=== PATIENT | male | born 1990 | race Caucasian/White ===

== ENCOUNTER → 2023-07-23 17:05 | Outpatient (BNVA) | payer MEDICAID, SELFPAY | PROVIDERS: Visit Provider Emergency Medicine | DX: J02.9 Acute pharyngitis, unspecified (principal) | CPT/HCPCS: 87071; 87880 ==

== ENCOUNTER 2024-03-12 07:12 | Emergency (ER) | payer MEDICAID, SELFPAY ==
[2024-03-12 07:18] VITALS: BP 153/80; PULSE 97; RESP 26; TEMP 38.1; O2SAT 100; BMI 24.3
--- NOTE | 2024-03-12 07:19 | ED_ITS ---
HPI - Abdominal Pain 2 General: Chief Complaint: Nausea/Vomiting/Diarrhea Stated Complaint: nausea, diarrhea, dizziness, abd pain Time Seen by Provider: 03/12/24 07:13 History of Present Illness: 34-year-old male presents emergency room complaining abdominal pain with nausea and diarrhea. Initially began about 3 days ago. He is taken some Tylenol and ibuprofen occasionally for it he has also had it and a prescription for ondansetron from a family member and has not really helped much as far as his nausea goes. He denies any dysuria urgency or frequency no hematochezia melena hematemesis or coffee-ground emesis. No previous abdominal surgeries no prescription medications. Patient has children in the home who have already had similar symptoms prior to his initiation of symptoms there is have already resolved MD elicited complaint: abdominal pain Onset (ago): day(s) (3) Pain Consistency: constant Location: Periumbilical Associated Symptoms: Reports change in bowel habits, GI cramping, diarrhea and poor appetite; Denies anorexia, belching, bloating, change in stool character, chills, coffee ground emesis, constipation, dyspepsia, dysuria, excessive flatus, fever(s), heartburn, hematochezia, hematuria, hematemesis, fecal incontinence, loose stools, melena, nausea, syncope and vomiting Review of Systems 2 Const: Denies: fever(s) or chills Card: Denies: chest pain or syncope Resp: Denies: dyspnea GI: Reports: diarrhea, GI cramping and change in bowel habits; Denies: abdominal pain, nausea, vomiting, hematemesis, coffee ground emesis, heartburn, constipation, bloating, belching, excessive flatus, fecal incontinence, change in stool character, hematochezia or melena : Denies: dysuria, urinary frequency, urinary urgency or hematuria Musc: Denies: neck pain or back pain Skin/Breast: Denies: rash Physical Exam 2 Const: COMMON NORMALS: no acute distress GENERAL APPEARANCE: cooperative and comfortable ORIENTATION/CONSCIOUSNESS: Yes awake, Yes oriented to person, Yes oriented to place and Yes oriented to time HENMT: COMMON NORMALS: normocephalic, atraumatic and hearing grossly normal bilaterally HEAD & SCALP: normocephalic and atraumatic Resp: COMMON NORMALS: normal respiratory effort, No retractions, No use of accessory muscles and clear to auscultation bilaterally AUSCULTATION: clear to auscultation bilaterally Cardio: COMMON NORMALS: regular rate, regular rhythm and No murmurs present (Cardio) RATE: regular rate RHYTHM: regular rhythm GI: COMMON NORMALS: No hepatosplenomegaly present AUSCULTATION: Yes normoactive bowel sounds PALPATION: Yes Tenderness to palpation present (GI) (Generalized), No Guarding due to palpation present (GI) and Yes No hepatosplenomegaly present Extremity: COMMON NORMALS: normal to inspection, capillary refill normal, no clubbing, cyanosis or edema, no calf tenderness and no pedal edema Neuro: SENSORIUM/ORIENTATION: Yes oriented to person, Yes oriented to place and Yes oriented to time Skin: COMMON NORMALS: no rashes or lesions noted GENERAL SKIN EXAM: no rashes or lesions noted Course 2 Vital Signs: Vital signs: Vital Signs Temperature 100.5 F H 03/12/24 07:18 Pulse Rate 98 03/12/24 10:11 Respiratory Rate 16 03/12/24 09:37 Blood Pressure 138/72 03/12/24 10:11 Pulse Oximetry 100 03/12/24 10:11 Oxygen Delivery Me thod Room Air 03/12/24 09:37 MDM - Abdominal Pain Medical Decision Making UA shows ketones that show some white blood cells but no leukocyte esterase and no nitrites. Patient has not had any urinary tract symptoms. I believe this may be due to his volume contraction. Given a single dose of Rocephin IV here we will discharge him home hold off on any oral antibiotics. He has not had a hematochezia. Concerned that initiating oral antibiotics will actually amplify his symptoms suspect this is viral he had some mesenteric lymphadenitis appearance on the CT. His other household contact has already had resolution of symptoms. Discharge patient home on promethazine as needed liquid diet if has any change or worsening of symptoms return. On repeat exam no acute abdomen does have a low-grade fever I think this is part of his viral complex with his colitis. Patient reports feeling much better after the IV fluids Lab Data 03/12/24 07:21 03/12/24 07:21 Labs/Radiology: Radiology Impressions Abdomen/Pelvis CT 03/12/24 07:48 IMPRESSION: 1. Enlarged lymph nodes in the RIGHT lower quadrant with prominent LEFT nodes along the central mesentery can be seen with mesenteric adenitis. 2. Appendix is not visualized but no evidence of acute appendicitis. 3. Hepatic congestion with periportal edema may be due to IV fluids. Recommend correlation with liver function tests. 4. No other acute findings. Laboratory Results WBC 8.87 10^3/uL (3.29-11.43) 03/12/24 07:21 RBC 5.45 10^6/uL (3.85-5.65) 03/12/24 07:21 Hgb 16.20 g/dL (11.27-16.99) 03/12/24 07:21 Hct 46.7 % (37-53) 03/12/24 07:21 MCV 85.7 fl (82-101) 03/12/24 07:21 MCH 29.7 pg (27-33) 03/12/24 07:21 MCHC 34.7 g/dL (30-55) 03/12/24 07:21 RDW 12.7 % (12.1-15.1) 03/12/24 07:21 Plt Count 216 10^3/cmm (157-399) 03/12/24 07:21 MPV 10.1 fL (7.4-10.4) 03/12/24 07:21 Neut % (Auto) 89.2 % 03/12/24 07:21 Lymph % (Auto) 3.4 % 03/12/24 07:21 [place] % (Auto) 6.9 % 03/12/24 07:21 Eos % (Auto) 0.2 % 03/12/24 07:21 Baso % (Auto) 0.1 % 03/12/24 07:21 Neut # (Auto) 7.91 10^3/uL (1.8-7.7) H 03/12/24 07:21 Lymph # (Auto) 0.3 10^3/uL (0.8-4.8) L 03/12/24 07:21 [place] # (Auto) 0.6 10^3/uL (0.2-0.9) 03/12/24 07:21 Eos # (Auto) 0.0 10^3/uL (0.0-0.8) 03/12/24 07:21 Baso # (Auto) 0.0 10^3/uL (0.0-0.1) 03/12/24 07:21 Nucleated RBC % (auto) 0 % 03/12/24 07:21 Nucleated RBCs # 0.0 /100WBC 03/12/24 07:21 Sodium 137 mmol/L (136-145) 03/12/24 07:21 Potassium 4.2 mmol/L (3.5-5.1) 03/12/24 07:21 Chloride 99 mmol/L (98-107) 03/12/24 07:21 Carbon Dioxide 23 mmol/L (22-29) 03/12/24 07:21 Anion Gap 19.2 (5-19) H 03/12/24 07:21 BUN 15 mg/dL (6-20) 03/12/24 07:21 Creatinine 1.3 mg/dL (0.7-1.2) H 03/12/24 07:21 GFR Calculation 62.8 mL/min (90-130) L 03/12/24 07:21 Glucose 118 mg/dL (65-115) H 03/12/24 07:21 Calculated Osmolality 286 mOsm/kg (285-295) 03/12/24 07:21 Lactic Acid 0.9 mmol/L (0.5-2.2) 03/12/24 08:13 Calcium 9.3 mg/dL (8.5-10.5) 03/12/24 07:21 Magnesium 1.7 mg/dL (1.7-2.3) 03/12/24 07:21 Total Bilirubin 0.7 mg/dL (0.15-1.2) 03/12/24 07:21 AST 32 U/L (0-40) 03/12/24 07:21 ALT 23 U/L (0-41) 03/12/24 07:21 Alkaline Phosphatase 88 U/L (40-130) 03/12/24 07:21 Creatine Kinase 240 U/L (39-308) 03/12/24 07:21 Total Protein 8.0 g/dL (6.6-8.7) 03/12/24 07:21 Albumin 4.4 g/dL (3.5-5.2) 03/12/24 07:21 Globulin 3.6 g/dL (1.3-4.6) 03/12/24 07:21 Lipase 29 U/L (13-60) 03/12/24 07:21 Urine Color Dark yellow (Yellow) A 03/12/24 07:40 Urine Appearance Clear (CLEAR) 03/12/24 07:40 Urine pH 5 (5-7) 03/12/24 07:40 Ur Specific [place] 1.015 (1.005-1.030) 03/12/24 07:40 Urine Protein 1+ (Negative) H 03/12/24 07:40 Urine Glucose (UA) Norm (Normal) 03/12/24 07:40 Urine Ketones 3+ (Negative) H 03/12/24 07:40 Urine Blood Neg (Negative) 03/12/24 07:40 Urine Nitrate Negative (Negative) 03/12/24 07:40 Urine Bilirubin 1+ (Negative) H 03/12/24 07:40 Urine Urobilinogen 1 mg/dL (Negative) H 03/12/24 07:40 Ur Leukocyte Esterase Trace (Negative) H 03/12/24 07:40 Urine RBC None /hpf (0-2) 03/12/24 07:40 Urine WBC 5-10 /hpf (0-5) H 03/12/24 07:40 Ur Squamous Epith Cells None /hpf (0-5) 03/12/24 07:40 Amorphous Sediment Not Reportable 03/12/24 07:40 Urine Bacteria Trace /hpf (NONE) 03/12/24 07:40 Adenovirus (PCR) Not detected (NOT DETECT) 03/12/24 07:42 C. pneumoniae DNA (PCR) Not detected (NOT DETECT) 03/12/24 07:42 Coronavirus 229E (PCR) Not detected (NOT DETECT) 03/12/24 07:42 Human Metapneumovir PCR Not detected (NOT DETECT) 03/12/24 07:42 Influenza A (H1) PCR Not detected (NOT DETECT) 03/12/24 07:42 Influ A (H1/09) PCR Not detected (NOT DETECT) 03/12/24 07:42 Influenza A (H3) PCR Not detected (NOT DETECT) 03/12/24 07:42 Influenza Type A (PCR) Not detected (NOT DETECT) 03/12/24 07:42 Influenza Type B (PCR) Not detected (NOT DETECT) 03/12/24 07:42 M. pneumoniae (PCR) Not detected (NOT DETECT) 03/12/24 07:42 Parainfluenza 1 (PCR) Not detected (NOT DETECT) 03/12/24 07:42 Parainfluenza 2 (PCR) Not detected (NOT DETECT) 03/12/24 07:42 Parainfluenza 3 (PCR) Not detected (NOT DETECT) 03/12/24 07:42 Parainfluenza 4 (PCR) Not detected (NOT DETECT) 03/12/24 07:42 RSV Type A (PCR) Not detected (NOT DETECT) 03/12/24 07:42 RSV Type B (PCR) Not detected (NOT DETECT) 03/12/24 07:42 Entero/Rhino (PCR) Not detected (NOT DETECT) 03/12/24 07:42 SARS-CoV-2 (PCR) Not detected (NOT DETECT) 03/12/24 07:42 All radiology interpretation(s) finalized by discharge Discharge Plan Discharge Patient Disposition: Home Clinical Impression: Colitis Condition: Stable Prescriptions: New promethazine 25 mg tablet 25 mg PO Q6H PRN (Reason: nausea and vomiting) Qty: 20 0RF No Action ibuprofen 800 mg tablet 800 mg PO Q8H PRN (Reason: pain) Qty: 60 0RF Discharge Orders: Discharge ED (Routine); Ordered 03/12/24 Ordered By: Mian Chapa Discharge Diet: Full LIquid Discharge Activity: Increase activity as tolerated Patient Instructions: Colitis (ED), Opioid Safety, Pain Management Activity Restrictions/Additional Instructions: Thank you for choosing [facility] for your healthcare needs today. It is very important that you follow up as instructed or that you return to the Emergency Department should you have concerns or if your condition changes or worsens in any way. You were seen today for abdominal pain and persistent diarrhea. CT showed evidence of colitis based on your presenting symptoms suspect this is viral. Urine showed significant dehydration and a couple of white blood cells but no other convincing signs of cystitis (bladder infection). You are given a single dose of ceftriaxone in the emergency room. Will hold off on any further antibiotics until the culture of the urine comes back. Recommend a liquid diet for the next several days and advance as tolerated you can use promethazine as needed for nausea. If symptoms worsen or change return. Coding Level of Care Code ED [place] for Siva Avery
[2024-03-12 07:28] LABS: Basophils % 0.1 %; Eosinophils % 0.2 %; Hematocrit 46.7 % (37-53); Lymphocytes # 0.3 10^3/uL (0.8-4.8); Lymphocytes % 3.4 %; Mean Corpuscular HGB Conc 34.7 g/dL (30-55); Mean Corpuscular Hemoglobin 29.7 pg (27-33); Mean Corpuscular Volume 85.7 fl (82-101); Mean Platelet Volume 10.1 fL (7.4-10.4); Monocytes # 0.6 10^3/uL (0.2-0.9); Monocytes % 6.9 %; Neutrophils # 7.91 10^3/uL (1.8-7.7); Neutrophils % 89.2 %; Nucleated Red Blood Cells % 0 %; Platelet Count 216 10^3/cmm (157-399); Red Blood Count 5.45 10^6/uL (3.85-5.65); Red Cell Distribution Width 12.7 % (12.1-15.1); White Blood Count 8.87 10^3/uL (3.29-11.43)
[2024-03-12] MEDS: sodium chloride 0.9% 1,000 ML 999 ML IV ×2 (07:38→07:39)
[2024-03-12] MEDS: metoclopramide 5 mg/mL SDV 2 mL 10 MG IVP (07:39)
[2024-03-12 07:42] VITALS: BP 139/82; PULSE 94; RESP 20; O2SAT 99
--- NOTE | 2024-03-12 07:48 | CT_ITS ---
WS: [id number] CT ABDOMEN PELVIS TECHNIQUE: Contrast-enhanced CT of the abdomen and pelvis with coronal and sagittal reformatted image s. CLINICAL INFORMATION: abd pain COMPARISON: None. DLP: 400.[address] scans at [facility] use at least one of these dose optimization techniques: automated e xposure control; mA and/or kV adjustment per patient size (includes targeted exams where dose is matc hed to clinical indication); or iterative reconstruction. FINDINGS: Lung bases are well aerated. Hepatic congestion with periportal edema may be due to IV fluids. Recomm end correlation with liver function tests. Portal vein and splenic vein are patent. Normal spleen. No rmal pancreas. Adrenal glands are normal. Normal renal parenchymal enhancement. A few tiny bilateral renal cysts. Normal pancreatic enhancement. Normal GE junction. Normal sigmoid colon. No evidence of small or larg e bowel obstruction. A few prominent lymph nodes in the RIGHT lower quadrant can be seen with mesente miky adenitis. Additional prominent lymph nodes along the central mesentery. Appendix is not visualize d. CT/CT abdomen pelvis w con* [id number] IMPRESSION: 1. Enlarged lymph nodes in the RIGHT lower quadrant with prominent LEFT nodes along the central mesentery can be seen with mesenteric adenitis. 2. Appendix is not visualized but no evidence of acute appendicitis. 3. Hepatic congestion with periportal edema may be due to IV fluids. Recommend correlation with liver function tests. 4. No other acute findings.
[2024-03-12 07:49] LABS: Alanine Aminotransferase 23 U/L (0-41); Albumin Level 4.4 g/dL (3.5-5.2); Alkaline Phosphatase 88 U/L (40-130); Anion Gap 19.2 (5-19); Aspartate Amino Transferase 32 U/L (0-40); Blood Urea Nitrogen 15 mg/dL (6-20); Calcium 9.3 mg/dL (8.5-10.5); Carbon Dioxide 23 mmol/L (22-29); Chloride 99 mmol/L (98-107); Creatinine Clr Calc Pharmacy 78.6042; Globulin 3.6 g/dL (1.3-4.6); Glomerular Filtration Rate 62.8 mL/min (90-130); Glucose 118 mg/dL (65-115); Lipase 29 U/L (13-60); Osmolality Calculated 286 mOsm/kg (285-295); Potassium 4.2 mmol/L (3.5-5.1); Sodium 137 mmol/L (136-145); Total Bilirubin 0.7 mg/dL (0.15-1.2)
[2024-03-12 08:12] LABS: Urine Appearance Clear (CLEAR); Urine Color Dark Yellow (Yellow); pH Urine 5 (5-7)
[2024-03-12 08:13] LABS: Specific Gravity, Urine 1.015 (1.005-1.030)
[2024-03-12] MEDS: morphine 4 mg/mL SDV 1 mL IVP (08:21)
[2024-03-12 08:22] VITALS: BP 122/65; PULSE 98; RESP 18; O2SAT 99
[2024-03-12 08:23] LABS: Creatine Phosphokinase 240 U/L (39-308); Magnesium 1.7 mg/dL (1.7-2.3)
[2024-03-12 08:28] LABS: Add Urine Microscopic? YES; Bacteria Urine TRACE /hpf; Bilirubin Urine 1+ (Negative); Blood Urine Neg (Negative); Glucose Urine UA Norm (Normal); Ketones Urine 3+ (Negative); Leukocyte Esterase Urine Trace (Negative); Nitrate Urine Negative (Negative); Protein Urine 1+ (Negative)
[2024-03-12 08:29] LABS: Add Urine Culture? No; Urobilinogen Urine 1 mg/dL (Negative)
[2024-03-12 08:30] VITALS: BP 147/82; PULSE 98; RESP 16; O2SAT 96
[2024-03-12 08:36] LABS: Lactic Sepsis W/Reflex 0.9 mmol/L (0.5-2.2)
[2024-03-12] MEDS: iohexol 350 mg/mL 500 mL Btl (per mL) IV (08:51)
[2024-03-12 09:37] VITALS: PULSE 90; RESP 16; O2SAT 95
[2024-03-12 09:38] LABS: Adenovirus Not Detected (NOT DETECT); Chlamydia Pneumoniae Not Detected (NOT DETECT); Coronavirus 229E,HKU1,NL63,OC4 Not Detected (NOT DETECT); Human Metapneumovirus Not Detected (NOT DETECT); Human Rhinovirus/Enterovirus Not Detected (NOT DETECT); Influenza A Not Detected (NOT DETECT); Influenza A H1 Not Detected (NOT DETECT); Influenza A H1-2009 Not Detected (NOT DETECT); Influenza A H3 Not Detected (NOT DETECT); Influenza B Not Detected (NOT DETECT); Mycoplasma Pneumoniae Not Detected (NOT DETECT); Parainfluenza Virus Type 1 Not Detected (NOT DETECT); Parainfluenza Virus Type 2 Not Detected (NOT DETECT); Parainfluenza Virus Type 3 Not Detected (NOT DETECT); Parainfluenza Virus Type 4 Not Detected (NOT DETECT); Respiratory Syncytial Virus A Not Detected (NOT DETECT); Respiratory Syncytial Virus B Not Detected (NOT DETECT); SARS-COV-2 Not Detected (NOT DETECT)
[2024-03-12] MEDS: cefTRIAXone 1,000 mg SDV 1000 MG IVP (10:07)
[2024-03-12 10:11] VITALS: BP 138/72; PULSE 98; O2SAT 100
== END 2024-03-12 10:30 | disposition home or self-care (01) ==
PROVIDERS: Emergency Provider Family Medicine
DX: K52.9 Noninfective gastroenteritis and colitis, unspecified (principal); Z11.52 Encounter for screening for COVID-19
CPT/HCPCS: 36415; 74177; 80053; 81001; 82550; 83605; 83690; 83735; 85025; 87040; 87486; 87581; 87633; 96361; 96374; 96375; 99285; J0696; J2270; J2765; J7030; Q9967

== ENCOUNTER 2025-02-25 21:35 | Emergency (ER) | payer MEDICAID, SELFPAY ==
--- OUTSIDE RECORDS SUMMARY | 2025-02-25 21:41 | XMS_ITS | Patient Health Record ---
Author Organization [facility] r Address [address] [place] [address] Care Team Providers Care Meter Supervisor Name Role Phone RamuClay Primary Care Provider Allergies Allergen (clinical drug ingredient) Drug/Non Drug Allergy documented on EMR Reaction Allergy Type Onset Date Status bees (uncoded) anaphylaxis Allergy Act jordyn peanuts (uncoded) stomach upset Allergy Active Wheat wheat (uncoded) stomach upset Allergy Active Reason For Referral No Information Medications Medication SIG (Take, Route, Frequency, Duration) Notes Start Date End Date Status Claritin 10 MG 1 tablet Orally Once a day for 30 day(s) Active Omeprazole 20 MG 1 capsule 30 minutes before morning meal Orally Once a day for 30 day(s) 05/11/2021 Active EPINEPHrine 0.3 MG/0.3ML INJECT 0.3MG IN TO LATERAL THIGH DIRECTED FOR SEVERE ALLERGIC REACTION. CALL 911 AFTER USING THIS MEDICATION. for 30 Active Social History Tobacco Use: Social History Observation Description Date Details (start date - stop date) Never Smoker NA - NA Tobacco Use: Question Answer Notes Are you a: never smoker Alcohol Screening: Question Answer Notes Did you have a drink contain ing alcohol in the past year? Yes How often did you have a dri nk containing alcohol in the past year? Two to three times per week (3 points) How many drinks did you have on a typical day when you were drinking in the past year? 1 or 2 (0 points) How often did you have six o r more drinks on one occasion in the past year? Never (0 points) Points 3 Interpretation Negative Problems Problem Type SNOMED Code ICD Code Onset Dates Problem Status W/U Status Risk Notes Problem Gastro-esophagea l reflux disease without esophagitis (084710780) Gastro-esophage al reflux disease without esophagitis (K21.9) Active confirmed Problem Celiac disease (410874523) Celiac disease (K90.0) Active confirmed Problem Allergy to bee venom (573526633) Bee allergy status (Z91.030) Active confirmed Plan Of Treatment Pending Test Test Name Order Date Holter Monitor 24-48 Hour [id number] 08/20/19 22 Insurance Providers Payer Name Payer Address Payer Phone Subscriber Number Group Number Insured Name Patient Relationship to Insured Coverage Start Date Coverage End Date [place] [employer] [address] [address] [place] [address] [id number] Mikel Ratliff Self - patient is the insured Medical (General) History Medical History History ICD Code celiac disease Surgical History Surgery Date(Month/Year)
--- OUTSIDE RECORDS SUMMARY | 2025-02-25 21:41 | XMS_ITS | Patient Health Record ---
Author Organization [facility] Address [address] [place] [address] Care Team Providers Care Credit Adjuster Name Role Phone Jerome Martini Primary Care Provider JEROME MARTINI Unavailable Unavailable Allergies Allergen (clinical drug ingredient) Drug/Non Drug Allergy documented on EMR Reaction Allergy Type Onset Date Status peanut allergenic extract Peanut (Diagnostic) Unknown Drug Allergy Active Bee Sting Unknown Allergy Active Gluten Gluten Unknown Allergy Active Reason For Referral No Information Medications Medication SIG (Take, Route, Frequency, Duration) Notes Start Date End Date Status EPINEPHrine 0.3 MG/0.3ML Solution Prefilled Syringe as directed Injection Active Social History Tobacco Use: Social History Observation Description Date Details (start date - stop date) Never Smoker NA - NA Social History Depression Screening Social Info Question Answer Notes PHQ-9 Little interest or pleasure in doing thin gs Not at all Feeling down, depressed, or hopeless Not at all Trouble falling or staying asleep, or sleeping t oo much Not at all Feeling tired or having little energy Not at all Poor appetite or overeating Not at all Feeling bad about yourself, or that you are a failure, or have let yourself or your family down Not at all Trouble concentrating on thi ngs, such as reading the newspaper or watching television Not at all Moving or speaking so slowly that other people could have noticed. Or the opposite ? being so fidgety or restless that you have been moving around a lot more than usual Not at all Thoughts that you would be b leland off , or of hurting yourself in some way Not at all Total Score 0 Drugs/Alcohol: Social Info Question Answer Notes Alcohol Screen (Audit-C) Did you have a drink containing alcohol in the past year? 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) Active confirmed Encounters Encounter Location Date Provider Diagnosis [facility] [address] [address] 03/14/2024 Jerome Martini Allergic to bees Z91.030 Assessments Encounter Date Diagnosis (ICD Code) Assessment Notes Treatment Notes Treatment Clinical Notes Section Notes 03/14/2024 Allergic to bees (ICD-10 - Z91.030) Plan Of Treatment No Information Insurance Providers Payer Name Payer Address Payer Phone Subscriber Number Group Number Insured Name Patient Relationship to Insured Coverage Start Date Coverage End Date Home State Health Plan Medicaid Replacement [address] [place] [address] [id number] Mikel Ratliff Self - patient is the insured [place] Medicaid [address] [place] [address] [id number] Mikel Ratliff Self - patient is the insured
--- OUTSIDE RECORDS SUMMARY | 2025-02-25 21:41 | XMS_ITS | Data Portability ---
Author Organization Formerly [facility], [facility] hermelinda Physician Andriy [facility] Address [address] [place] [address] Care Team Providers Care Freight Conductor Name Role Phone MOYNAE Primary Care Provider [phone] Assessment No assessment recorded. Plan of Treatment Reminders Order Date Submit Date Provider Last Modified By Organization Details Last Modified Time Details Appointments None recorded. Lab None recorded. Referral None recorded. Procedures None recorded. Surgeries None recorded. Imaging None recorded. Medication Orders Kenalog 40 mg/mL suspension for injection 2015 016 Not available 6 08:42:41 Patient TargetsNo targets recorded. Patient Instructions Encounter Date Encounter Id Patient Instructions Last Modified By Organization Details Last Modified Time 03/03/2016 [id number] kneecap bursitis : care instructions SHYANNE Not available 03/05/2016 18:07:12 Limit activity over the next 24-48 hours. Followup in the office as needed. [email or web address] Not available 03/03/2016 17:41:06 I discussed the diagnosis with the patient. Considering that he is not having a significant amount of swelling in the prepatellar bursa today there is nothing to be drained. I explained to him that we could try an injection into his left knee of cortisone to help with any additional inflammation. I did explain to him that considering his choice of exercise he will likely continue to have swelling since he has already had issues with prepatellar bursitis in the past. He was instructed to followup in the office if he has acute swelling again. Proper consent was obtained and a time-out was taken. He will follow up with me as needed. He has no additional questions at this time. [email or web address] Not available 03/03/2016 17:41:06 Reason for Referral None Reported. Results Created Date Observation Date Name Description Value Unit Range Abnormal Flag Note LastModifiedBy Organization Detail LastModifiedTime 10/01/19 22 10/01/2021 cristiana r monit or No observ ation record ed. marry Not Available 2021 14:32:27 Result Notes None recorded. Problems Name Problem SNOMED Code Status Onset Date Resolution Date Notes Provider Name and Address Organization Details Recorded Time Knee joint - synovial swelling 308853657 Active CHER THURMAN [address] [place] [address], [phone], [facility] 6 17:41:05 Prepatellar bursitis 50950814 Active CHER THURMAN [address] [place] [address], [address] [place] [address], [facility] 6 17:41:05 Problem Notes None recorded. Procedures Surgical History Date Name Laterality Status Provider Name and Address Organization Details Recorded Time 2 Holter completed DAGMAR RAMIREZ MD [address] [place] [address], [phone], [facility] 10/01/2021 13:02:19 6 Kenalog Injection completed CHER THURMAN [address] [place] [address], [phone], [facility] 03/03/2016 17:37:27 Imaging Results None recorded. Procedure Notes None recorded. Medical Equipment None Reported. Medications Name Sig Start Date Stop Date Status Note LastModified by Organization Details LastModified Time Tamiflu 75 mg capsule active Not Available Not Available Not Available Kenalog 40 mg/mL suspension for injection 016 active Not Available Not Available Not Avai lable benzonatate 100 mg capsule active Not Available Not Availab le Not Available EpiPen 2-Iggy 0.3 mg/0.3 mL injection, auto-injector active Not Available Not Availabl e Not Available Vitals Date Recorded Body mass index (BMI) Body height Body weight Provider Name and Address Organization Details Last Updated DateTime 03/03/2016 23.6 kg/m2 175.26 cm 11639.7792 g Torrie Winn [facility] 03/03/2016 15:43:23 Social History Question Answer Notes LastModified by Organizat ion Details LastModified Time Live Alone Or With Others? With Others Information not available 03/03/2016 How Much Tobacco Do You Smoke? No Information not available 03/03/2016 Sex: Unknown Functional Status Question Answer Note LastModified by Organization D etails LastModified Time What is your level of alcohol consumption? 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 Family History Nothing Reported. Medical History Condition Response Orthopedic Problems Y Past Encounters Encounter ID Performer Location Encounter Start Date Encounter Closed Date Diagnosis/Indication Diagnosis SNOMED-CT Code Diagnosis ICD10 Code Diagnosis Note [id number] CHER THURMAN [facility] [address] [facility],[address] [place] [address] 03/03/2016 15:06:13 03/03/2016 16:41:28 Knee joint - synovial swelling 258094154 M25.462 Prepatellar bursitis 170 25002 M70.42 [id number] AUBREY CESPEDES MD [facility] [address] [place] [address] 09/24/2021 15:20:16 09/30/2021 11:14:10 Chest pain 82448866 R07.9 [id number] DAGMAR RAMIREZ MD [facility] [address] [place] [address] 10/01/2021 12:22:43 10/06/2021 10:48:42 Chest pain 98215963 R07.9 Health Concerns Section Related Observation LastModified by Organization Detai ls LastModified Time None Recorded Concern Status LastModified by Organization Details LastModified Time None Recorded Advance Directives Directive None Recorded Payers Insurance Date Sequence Insurance Name Policy Number Policy Duran Covered Member ID Duran Member ID Guarantor Name 10/05/2021 1 [facility] [id number] Mikel Ratliff [id number] Mikel Ratliff Notes Date Note Type Note Provider Name and Address Organization Details Recorded Time 03/03/2016 text/html KneeReported bypatient.Location :left; anterior; superficial Quality:sharp; frequent Severity:mild; moderate Duration:2 months Timing:acute Context:cannot identify; sports injury; overuse Alleviating Factors:sitting; lying down; rest Aggravating Factors:walking; bending/squatting; exercise; getting out of bed; going from sit to stand; upstairs; downstairs Associated Symptoms:no weakness; no numbness; no tingling; no redness; no warmth; no ecchymosis; no catching/locking; no popping/clicking; no buckling; no grinding; no instability; no radiation down leg;swelling Previous Surgery:none Prior Imaging:none Previous Injections:none Work Related:no Working:regular dutyNotes:The patient is a 26-year-old male who presents today because of his left knee. He states that a few days ago there was a lot of swelling over his patella. 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 He mentions that that is when the symptoms first started. He was seen in the urgent care a few days ago when the knee was very swollen and was unable to have it drained. He presents to the office today over concern about the continued swelling in his knee. MOY ALEMAN, PAC [address] [place], [address], [facility] 03/03/2016 17:41:12
--- OUTSIDE RECORDS SUMMARY | 2025-02-25 21:41 | XMS_ITS | Data Portability ---
Author Organization [place] - Cris[facility] adan, MAIN OFFICE Address [address] [place] [address] [place] [address] Assessment Encounter Date Assessment Date Assessment LastModified by Organization Details LastModified Time 02/03/2015 02/03/2015 Today's office visit included bswe-zi-ppsi time that began at 3:10 and ended at 4:10 for a total of 60 minutes. >50% of time today was spent counseling and coordinating care as indicated in assessment/plan . Today's total minutes = 60. Total counseling * time today = 35 minutes. * including the risks, benefits, and/or potential side effects of current medications and new options for diagnosis and treatment. [email or web address] Not available 02/03/2015 16:07:56 03/10/2015 03/10/2015 Today's office visit included dwfn-ka-pkzl time that began at 1:40 and ended at 2:15 for a total of 35 minutes. >50% of time today was spent counseling and coordinating care as indicated in assessment/plan . Today's total minutes = 35. Total counseling * time today = 20 minutes. * including the risks, benefits, and/or potential side effects of current medications and new options for diagnosis and treatment. Not available 03/10/2015 14:18:00 Plan of Treatment Reminders Order Date Submit Date Provider Last Modified By Organization Details Last Modified Time Details Appointments None recorded. Lab vitamin D, 25-hydrox y, total, serum 015 015 [email or web address] [facility], [facility] [address], [address], [address], 5 13:03:07 lipid panel, serum 015 015 [facility], [address], Carlos A [address] [place] [address], [address], 5 06:18:20 Referral None recorded. Procedures None recorded. Surgeries None recorded. Imaging None recorded. Medication Orders Tamiflu 75 mg capsule 016 016 [email or web address] [id number], [address] [facility], [place], [address], 6 16:56:39 Patient TargetsNo targets recorded. Patient Instructions Encounter Date Encounter Id Patient Instructions Last Modified By Organization Details Last Modified Time 02/03/2015 [id number] Continue same therapy, except as noted. Diet: Increase essential fatty acids and decrease trans fatty acids. Gently increase regular aerobic exercise. Call for non-resolving symptoms or new symptoms. Consider trying Miso for probiotic support. Avoid sucralose. Try adding more Alpaugh 3's to diet, walnuts, pumpkin seeds, etc. Omegagenics, Optimum Omegas. Rec'd 2,000 mg Vit C daily, and 2,000 mg Selenium daily. Could support SOD with adequate intake of supporting minerals, including manganese, zinc, and copper. Not available 02/03/2015 16:14:39 [email or web address] could be useful for reference re food nutrients. Not available 02/03/2015 16:14:39 03/10/2015 [id number] Continue same therapy, except as noted. Diet: Increase essential fatty acids and decrease trans fatty acids. Gently increase regular aerobic exercise. Call for non-resolving symptoms or new symptoms. [email or web address] Not available 03/10/2015 14:18:00 09/29/2015 [id number] note to return t o work/school - Patient was seen in our office today for influenza and may return to work on 10/01/15 if no fever present. Not available 10/03/2015 18:54:18 OOW 09/30, & RTW, if improved, on 10/01. Discussed with the patient the likely benefits, possible risks and potential side effects of today's new medication, Tamiflu. Today's office visit included rihw-tl-tvqx time for a total # of minutes = to 15(+). More than 50% of time today was spent counseling* and coordinating care as indicated in assessment/plan. [email or web address] Not available 02/23/2016 20:09:36 02/23/2016 [id number] gluten-free diet : care instructions [email or web address] Not available 02/24/2016 00:57:24 seasonal allergies: care instructions [email or web address] Not available 02/24/2016 17:24:59 leg and ankle edema: care instructions [email or web address] Not available 02/24/2016 17:24:59 Today's office visit included xuik-ls-dxzg time for a total # of minutes = to 40(+). More than 50% of time today was spent counseling* and coordinating care as indicated in assessment/plan. (5:55 to 6:40). [email or web address] Not available 02/24/2016 00:55:45 Reason for Referral None Reported. Results Created Date Observation Date Name Description Value Unit Range Abnormal Flag Note LastModifiedBy Organization Detail LastModifiedTime 02/14/20 15 02/14/2015 lipid panel , serum cholesterol 152 mg/dL 0-200 normal ATP III Class ifica tion: < 200 mg/dL [place] able 200 - 239 mg/dL Borde rline High >= 240 mg/dL High Not Available [facility] [address] [facility] [place], [address], 02/14/2015 06:18:20 02/14/20 15 02/14/2015 lipid panel , serum triglyceride 89 mg/dL <150 normal Not Available [facility] [address] [facility] [place], [address], 02/14/2015 06:18:20 02/14/20 15 02/14/2015 lipid panel , serum HDL cholesterol 53 mg/dL >39 normal Not Available [facility] [address] [facility] [place], [address], 02/14/2015 06:18:20 02/14/20 15 02/14/2015 lipid panel , serum total chol/HDL ratio 2.9 ratio normal Not Available [facility] [address] [facility] [place], [address], 02/14/2015 06:18:20 02/14/20 15 02/14/2015 lipid panel , serum VLDL cholesterol (calc) 18 mg/dL 0-40 normal Not Available [facility] [address] [facility] [place], [address], 02/14/2015 06:18:20 02/14/20 15 02/14/2015 lipid panel , serum LDL cholesterol (calc) 81 mg/dL 0-99 normal Total Maci stero l/HDL Ratio :CHD Risk Coron vel Heart Disea se Risk Table Men Women 1/2 Merino ge Risk 3.4 3.3 Merino ge Risk 5.0 4.4 2X Merino ge Risk 9.6 7.1 3X Merino ge Risk 23.4 11.0 Use the calcu lated Patie nt Ratio above and the CHD Risk table to deter mine the patie nt's CHD Risk. ATP III Class ifica tion (LDL) : < 100 mg/dL Optim al 100 - 129 mg/dL Near or Above Optim al 130 - 159 mg/dL Borde rline High 160 - 189 mg/dL High > 190 mg/dL Very High Not Available [facility] [place] [address] [facility] [place], [address], 02/14/2015 06:18:20 Result Notes None recorded. Problems Name Problem SNOMED Code Status Onset Date Resolution Date Notes Provider Name and Address Organization Details Recorded Time Allergy Active Destiny camargo PA Kaitlin Aburto [facility] 5 14:39:19 Bee sting 911040808 Active 01/2012 & 04/2013 Matthew Aburto MD [address], [place], [address], [facility] 5 15:53:50 Celiac disease 794287122 Active Matthew Aburto MD [address], [place], [address], [facility] Criselda [facility] 5 16:14:39 Seasonal allergy 491787705 Active Matthew Aburto MD [address], [place], [address], [facility] 5 16:14:39 Pain in upper limb 687650480 Completed 02/24/2016 Removal Reason: resolved Matthew Aburto MD [address], [place], [address], [facility] 6 00:33:12 Subungua l hematoma 779463895 Completed 02/24/2016 Removal Reason: resolved Matthew Aburto MD [address], [place], [address], [facility] 6 00:32:44 Pain of shoulder region 47924777 Completed 02/24/2016 Removal Reason: resolved Matthew Aburto MD [address] [facility] [address], [place], [address], [facility] 6 00:32:33 Complain ing of a rash Completed 02/24/2016 Removal Reason: resolved Matthew Aburto MD [address], [place], [address], [facility] 6 00:33:00 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 Medical Equipment None Reported. Allergies No known drug allergies Medications Name Sig Start Date Stop Date Status Note LastModified by Organization Details LastModified Time Tamiflu 75 mg capsule Take 1 capsule twice a day by oral route. 016 2015 completed Not Available Not Available Not Available Vitals Date Recorded Heart rate Body weight Body height Body mass index (BMI) Body temperature Oxygen saturation Oxygen saturation in Arterial blood by Pulse oximetry Systolic And Diastolic Provider Name and Address Organization Details Last Updated DateTime 6 88 /min 89352.9 6394 g 175.26 cm 23.9 kg/m2 98.2 [degF] 97 % 97 % 120/70 mm[Hg] Lizy Criselda [facility] 6 16:55:53 Date Recorded Body weight Oxygen saturation Oxygen saturation in Arterial blood by Pulse oximetry Body height Heart rate Body mass index (BMI) Systolic And Diastolic Provider Name and Address Organization Details Last Updated DateTime 5 99631.1 8683 g 98 % 98 % 175.26 cm 90 /min 23.5 kg/m2 120/58 mm[Hg] Destiny Lynn [facility] 5 14:39:19 Date Recorded Body height Body weight Body mass index (BMI) Oxygen saturation Oxygen saturation in Arterial blood by Pulse oximetry Heart rate Provider Name and Address Organization Details Last Updated DateTime 6 175.26 cm 12250.5 6 g 24.1 kg/m2 98 % 98 % 66 /min Angel Chepe [facility] 6 16:54:47 Date Recorded Body weight Oxygen saturation Oxygen saturation in Arterial blood by Pulse oximetry Heart rate Systolic And Diastolic Provider Name and Address Organization Details Last Updated DateTime 5 21162.9 6394 g 98 % 98 % 64 /min 120/70 mm[Hg] Destiny Lynn [facility] 5 13:19:04 Social History Question Answer Notes LastModified by Organizat ion Details LastModified Time Tobacco Smoking Status Never Smoker Mary Ann camargo [facility] 01/16/2015 09:53:34 Coffee No Information no t available 01/16/2015 Tea No Information no t available 01/16/2015 Caffeinated Soda No Informat ion not available 01/16/2015 Other Drug History No Information not available 01/16/2015 Alcohol Yes Information no t available 01/16/2015 Liquor Amount Per Week 2-3 Drinks Information not available 01/16/2015 Felony Convictions? No Information not available 01/16/2015 Sex: Unknown Functional Status None recorded. Mental Status None recorded. Family History Relationship Description Onset Age of this Age Resolved Age Notes LastModified by Organization Details LastModified Time Mother Malignant tumor of breast [email or web address] Not available 2014 14:19:20 Father Hypertensive disorder [email or web address] Not available 2014 14:19:20 Maternal Grandmother Memory impairment memory issues [email or web address] Not available 03/10/2015 14:19:20 Paternal Grandmother Malignant tumor of breast cancer : breast & lung, memory issues Not available 03/10/2015 14:19:20 Medical History Condition Response Allergies Y Past Encounters Encounter ID Performer Location Encounter Start Date Encounter Closed Date Diagnosis/Indication Diagnosis SNOMED-CT Code Diagnosis ICD10 Code Diagnosis Note [id number] Matthew Aburto MD MAIN OFFICE [address] [place] [address] 02/03/2015 14:25:31 02/03/2015 16:08:56 Celiac disease 769458800 Seasonal allergy 774064400 Pain in upper limb 249848014 Subungual hematoma 595383460 [id number] Matthew Aburto MD MAIN OFFICE [address] [place] [address] 03/10/2015 13:00:09 03/10/2015 14:22:29 Pain of shoulder region 11305002 Complaining of a rash 538607087 Likely exertion related hives. Talipes planus 90077236 Possible use of orthotics discussed [facility] pt[facility] [id number] Matthew Aburto MD MAIN OFFICE [address] [address] 09/29/2015 15:50:21 09/29/2015 17:29:07 Influenza with respiratory manifestation other than pneumonia 97515618 J11.1 Nausea 282376181 R11.0 Cd. try OTC and/or appropriat e herbal support (pt. prefers to limit pharmaceut icals) and CFNR. [id number] Matthew Aburto MD MAIN OFFICE [address] [place] [address] 02/23/2016 15:31:38 02/24/2016 14:47:25 Seasonal allergy 555023680 J30.2 Defer to OTC rx. prn at present, declines scripts. 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 Continue to avoid pressure to left patella, and use compressio n dressing. Ortho consult advised. Pt. will consider MEGAN walk-in appt. to [facility] or can call back to be referred to that or another office ([facility]?). May also request left knee films by call-back if preferred. Edema of l ower extremity 180707563 R60.0 Localized, and likely post-traum atic. Celiac disease 166557333 K90.0 Currently pt. doing well with GF options at home, but more problemati c eating out. Health Concerns Section Related Observation LastModified by Organization Detai ls LastModified Time None Recorded Concern Status LastModified by Organization Details LastModified Time None Recorded Advance Directives Directive None Recorded Payers Insurance Date Sequence Insurance Name Policy Number Policy Duran Covered Member ID Duran Member ID Guarantor Name 02/23/2016 1 [employer] ON OR BEFORE 08/15/2024 - STATE HEALTH PLAN (PPO) [id number] Mikel Ratliff [id number] Mikel Ratliff Notes Date Note Type Note Provider Name and Address Organization Details Recorded Time 02/03/2015 text/html Pt is here as a new pt. He states that he has food allergies that he wants to discuss. 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 He also runs, anywhere 3-5 miles, and uphill sprinting. Denies CP, palp's, increased HR. Therapy for GERD was ineffective, elimination diet for Celiac was effective. Now if he eats gluten makes him very sick. Had endoscopy done by [facility]. Some allergy to corn as well. Avoids trans-fats. Gets more achey with workouts now than he used to, incl. arms and legs. Matthew Aburto MD [address], [place], [address], [facility] 02/03/2015 16:14:40 03/10/2015 text/html Pt. is here for f/u. He is also here for lab results. Avoids gluten, and trans fats. His exercise habit: runs 2 to 3 times a week, but limited due to runner's itch and often breaks out in hives not in just areas covered by clothing, and lifts 2 to 3 times a week. Sleeps 8 hrs. in the summer, and ave. 7 in the school year. Eats Chobani yoghurt most days, and avoids pill probiotics. Matthew Aburto MD [address], [place], [address], [facility] 03/10/2015 14:19:38 09/29/2015 text/html Patient here tod ay due to feeling sick since yesterday. Temperature earlier today was 100.7 degrees and he took some acetaminophen. Started with runny nose, congestion, and sore throat. Also reports body aches and muscle pains since last evening. Woke up at 4 am with temperature of 100.4, and increased nausea with the elevated temperature. Treated with acetaminophen. He has not had a flu shot. Took Nyquil about 30 minutes ago. Matthew Aburto MD [address], [place], [address], [facility] 02/23/2016 20:10:19 02/23/2016 text/html -BIB. Patient wants to have a yearly checkup. He also complains of swelling in his left knee. He says he hurt this knee in December 20, 2015 in a wrestling tournament, where the left impacted a wrestling mat that seemed overly firm. He thinks the injury was just from contact with the mat. He says the swelling has been there since the injury. He says his left knee doesn't give him trouble with most activity but even s;light pressure on the knee cap causes pain. He wears a compression brace on his left knee about 12 hours a day - he does not sleep with it on. He says he feels an unusual indention in his left knee cap as well as something floating around on it. He denies the knee locking up. Without the compression knee brace, he develops a pocket of fluid below the knee cap. Matthew Aburto MD [address], [place], [address], [facility] 02/24/2016 00:57:26
--- NOTE | 2025-02-25 21:42 | ECG_ITS ---
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 Measurements Intervals [place] Rate: 81 P: 70 MA: 138 QRS: 64 QRSD: 112 T: 41 QT: 368 QTc: 430 Interpretive Statements SINUS RHYTHM POSSIBLE RIGHT VENTRICULAR CONDUCTION DELAY [RSR (QR) IN V1/V2] INTERPRETATION BASED ON A DEFAULT AGE OF 40 YEARS No previous ECG available for comparison Electronically Signed On 02-26-2025 15:02:35 CDT by Juma Eli M.D. [id number]
[2025-02-25 21:44] VITALS: BP 163/94; PULSE 79; RESP 18; TEMP 36.9; O2SAT 99; BMI 24.3
== END 2025-02-25 23:17 | disposition left against medical advice (07) ==
LOC: ER 21:39
PROVIDERS: Emergency Provider Family Medicine
DX: Z01.89 Encounter for other specified special examinations (principal); Z53.21 Procedure and treatment not carried out due to patient leaving prior to being seen by health care provider
CPT/HCPCS: 93005

== ENCOUNTER → 2025-02-26 12:44 | Outpatient (BNVA) | payer MEDICAID, SELFPAY | PROVIDERS: Visit Provider Emergency Medicine | DX: I10 Essential (primary) hypertension (principal) | CPT/HCPCS: 80053; 84443; 85025 ==

== ENCOUNTER → 2025-03-15 09:09 | Outpatient (BNVA) | payer MEDICAID, SELFPAY | PROVIDERS: Referring Provider Emergency Medicine; Visit Provider Internal Medicine Cardiovascular Disease | DX: R07.9 Chest pain, unspecified (principal); R00.2 Palpitations | CPT/HCPCS: 93005 ==

== ENCOUNTER 2025-04-02 12:04 | Outpatient (CLI) | payer MEDICAID, SELFPAY ==
--- NOTE | 2025-04-02 | ECG_ITS ---
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 Interpretive Statements Procedure: The patient was exercised by the Kristian protocol. Vital signs and ECG findings: Baseline blood pressure was 152/86 with a heart rate of 75 bpm. At peak exercise patient's blood pressure was 183 over/76 with a heart rate of 150 bpm which is 91% of the patient's maximal predicted heart rate. He achieved 17.2 METS of exercise exercising for 13 minutes and 17 seconds on the Kristian protocol. Reason for completion of the test was patient reaching maximal effort. The baseline EKG showed normal sinus rhythm with right bundle branch block and a delta wave consistent with an accessory pathway, [address] depression in lead V2 and less than 1 mm of J point ST depression in the precordial anterolateral leads. The stress EKG showed worsening of ST depression and T wave inversions in the anterior and lateral leads consistent with inducible ischemia. These ST-T wave abnormalities persisted into recovery. CONCLUSION: 1. Exercise capacity was good. 2. Heart rate response was appropriate. 3. Blood pressure response was appropriate. 4. No symptoms of ischemia during stress test. 5. EKG findings consistent with inducible ischemia. 6. No arrythmias during stress test Electronically Signed On 04-11-2025 09:53:45 CDT by Andre Javed M.D. [email or web address] [id number]
[2025-04-02 12:11] VITALS: BMI 25.0
[2025-04-02 12:45] VITALS: BP 159/86; PULSE 100
== END 2025-04-02 12:05 | disposition home or self-care (01) ==
PROVIDERS: PCP Nurse Practitioner Family; Visit Provider Internal Medicine Cardiovascular Disease
DX: R00.2 Palpitations (principal); R93.1 Abnormal findings on diagnostic imaging of heart and coronary circulation
CPT/HCPCS: 93017

== ENCOUNTER 2025-04-12 06:22 | Outpatient (CLI) | payer MEDICAID, SELFPAY ==
--- NOTE | 2025-04-12 06:15 | USCV_ITS ---
Mikel Ratliff Age: 35 Gender: M : 1990 Exam Date: 04/12/2025 06:41 Ordering Phys: Andre Javed MD ([email or web address]) Technologist: Exam Location: [facility] [place] Indication: abnormal ekg BP: / HR: 71 Rhythm: Sinus Technical Quality: MEASUREMENTS (Male / Female) Normal Values 2D ECHO LVOT Diameter 2.1 cm LV Ejection Fraction MOD 4C 72.8 % LA Diameter 3.6 cm RA Systolic Volume 4C AL 29.6 ml RA Systolic Volume 4C MOD 29.0 ml Aorta at Sinotubular Diameter 2.4 cm M-MODE LA Ao Ratio MM 1.1 AV Cusp Separation MM 2.5 cm DOPPLER AV Peak Velocity 122.7 cm/s LVOT Peak Velocity 93.0 cm/s AV Area Cont Eq vti 3.0 cm squared AV Area Cont Eq pk 2.6 cm squared MV Area PHT 4.5 cm squared Mitral E to A Ratio 1.3 TV Peak Velocity 180.3 cm/s TR Peak Velocity 224.0 cm/s TR Peak Gradient 20.1 mmHg PV Peak Velocity 114.0 cm/s FINDINGS Left Ventricle Normal left ventricular size, systolic function and wall thickness, with no regional wall motion abnormalities. Left ventricular ejection fraction is 65%. Normal diastolic function. Right Ventricle Normal right ventricular size and systolic function. Normal right ventricular systolic pressure. Right Atrium Normal right atrial size. Left Atrium Normal left atrial size. Mitral Valve Structurally normal mitral valve. No mitral valve stenosis. Trace mitral valve regurgitation. Aortic Valve No aortic valve stenosis. No aortic valve regurgitation. Tricuspid Valve Trace to mild tricuspid valve regurgitation. No tricuspid valve stenosis. Pulmonic Valve No pulmonary valve regurgitation. No pulmonary valve stenosis. Pericardium No pericardial effusion. Aorta Normal aortic root size. IVC Inferior vena cava not visualized. CONCLUSIONS Normal transthoracic echocardiogram. No significant valve abnormalities. Normal left ventricular size and function with an estimated ejection fraction of 65%. Andre Javed MD, [facility] (Electronically Signed) Final Date: 12 April 2025 19:11 S
== END 2025-04-12 06:23 | disposition home or self-care (01) ==
LOC: RAD 06:22
PROVIDERS: PCP Nurse Practitioner Family; Visit Provider Internal Medicine Cardiovascular Disease
DX: I45.6 Pre-excitation syndrome (principal); R00.2 Palpitations; I07.1 Rheumatic tricuspid insufficiency
CPT/HCPCS: 93306